=== PATIENT | female | born 1990 | race Hispanic/Latino ===

== ENCOUNTER 2018-05-10 17:02 | Inpatient (IN) | payer OTHER ==
[2018-05-10] MEDS ORDERED: Sodium Chloride 0.9% 1,000 ML IV STA (17:51)
--- NOTE | 2018-05-10 18:22 | ED PDOC ---
HPI: Female Pain Time Seen by Provider: 05/10/18 17:50 Chief Complaint (Nursing): Female Genitourinary Chief Complaint (Provider): Female Genitourinary History Per: Patient History/Exam Limitations: no limitations Onset/Duration Of Symptoms: Days Current Symptoms Are (Timing): Still Present Quality Of Discomfort: "Pain" Associated Symptoms: Fever, Back Pain, Urinary Symptoms. denies: Vomiting, Diarrhea, Chest Pain Additional Complaint(s): 28 y/o female with a PMHx of Imani's disease and 2 kidney infection requiring hospitalization more than 5 years ago presents to the ED complaining of lower back pain and suprapubic pain associated with urinary hesitancy and fever, ongoing since yesterday. Patient reports of going to an Urgent Care yesterday and started on Cipro and Macrobid this morning. Additionally, patient reports of taking Tylenol 1 gram every 3 to 4 hours. Patient is complaint with levothyroxin medications. Denies vaginal discharge, vomiting and diarrhea. PMD: In [place] Past Medical History Reviewed: Historical Data, Nursing Documentation, Vital Signs Vital Signs: Last Vital Signs Temp 100.7 F H 05/10/18 17:26 Pulse 106 H 05/10/18 17:26 Resp 18 05/10/18 17:26 BP 114/77 05/10/18 17:26 Pulse Ox 100 05/10/18 17:26 - Medical History PMH: Hyperthyroidism Other PMH: urinary hesitancy - Surgical History Surgical History: No Surg Hx - Family History Family History: States: Unknown Family Hx - Home Medications Home Medications: Ambulatory Orders Medication Instructions Recorded Ciprofloxacin [Cipro] 500 mg PO BID 05/10/18 - Allergies Allergies/Adverse Reactions: Allergies Allergy/AdvReac Type Severity Reaction Status Date / Time No Known Allergies Allergy Verified 05/10/18 17:26 Review of Systems ROS Statement: Except As Marked, All Systems Reviewed And Found Negative Constitutional: Positive for: Fever, Malaise Cardiovascular: Negative for: Chest Pain Respiratory: Negative for: Shortness of Breath Gastrointestinal: Positive for: Abdominal Pain. Negative for: Vomiting, Diarrhea Genitourinary Female: Positive for: Other (Hesitancy). Negative for: Vaginal Bleeding Musculoskeletal: Positive for: Back Pain Neurological: Negative for: Headache, Other (Syncope) Physical Exam - Reviewed Nursing Documentation Reviewed: Yes Vital Signs Reviewed: Yes - Physical Exam Appears: Positive for: Non-toxic Head Exam: Positive for: ATRAUMATIC, NORMOCEPHALIC Skin: Positive for: Normal Color, Warm, Dry Eye Exam: Positive for: Normal appearance, EOMI, PERRL Neck: Positive for: Normal, Painless ROM Cardiovascular/Chest: Positive for: Regular Rate, Rhythm. Negative for: Murmur Respiratory: Positive for: Normal Breath Sounds. Negative for: Respiratory Distress Gastrointestinal/Abdominal: Positive for: Normal Exam, Soft, Tenderness (Mild lower abdominal tenderness) Back: Positive for: Normal Inspection, L CVA Tenderness (left > right), R CVA Tenderness (left > right) Extremity: Positive for: Normal ROM. Negative for: Pedal Edema, Deformity Neurologic/Psych: Positive for: Alert, Oriented (x3). Negative for: Motor/ Sensory Deficits - Laboratory Results Result Diagrams: 05/11/18 05:00 05/11/18 05:00 - ECG O2 Sat by Pulse Oximetry: 100 (RA) Pulse Ox Interpretation: Normal Medical Decision Making Medical Decision Making: Time: 1753 -- Patient presenting with fever and urinary symptoms associated with back pain. -- Rule out sepsis and pyelonephritis -- Given many hospitalizations many years ago for same symptoms, initiate culture and blood work. Also check Tylenol level given patient unintentionally taking too much Tylenol. -- VBG -- Sodium Chloride IV 1000 mls/hr -- Urine Culture -- Urinalysis Time: 1822 Plan: -- Acetaminophen -- CMP -- ED Urine -- ED Urine Dipstick -- CBC with differentials -- Morphine 2 mg IV -- Blood Culture Time: 1899 -- Labs reviewed revealing nucleosytosis with a lactate of 1.8 -- Given patient meets sepsis criteria and has failed outpatient antibiotics. Patient will be admitted to the Hospitalist for IV antibiotics -- Diagnosis of sepsis and pyelonephritis. -- Patient endorsed to Dr. Nova, pending CT. Scribe Attestation: Documented by Fariha Max acting as a scribe for Dr. Ruiz Dimas III, DO. Provider Scribe Attestation: All medical record entries made by the Scribe were at my direction and personally dictated by me. I have reviewed the chart and agree that the record accurately reflects my personal performance of the history, physical exam, medical decision making, and the department course for this patient. I have also personally directed, reviewed, and agree with the discharge instructions and disposition. Disposition - Clinical Impression Clinical Impression: Sepsis, Pyelonephritis, Renal abscess - Patient ED Disposition Is Patient to be Admitted: Yes Counseled Patient/Family Regarding: Studies Performed, Diagnosis - Disposition Disposition: Transfer of Care Disposition Time: 19:00 Condition: STABLE Patient Signed Over To: Juwan Nova
[2018-05-10 18:27] LABS: SQUAMOUS EPITHIAL 3 /hpf (0-5); URINE BACTERIA RARE (<OCC); URINE BILIRUBIN NEGATIVE (NEGATIVE); URINE BLOOD NEGATIVE (NEGATIVE); URINE CLARITY SLIGHTY-CLOUDY (Clear); URINE COLOR YELLOW (YELLOW); URINE GLUCOSE (UA) NEG (Normal); URINE LEUKOCYTE ESTERASE SMALL Leu/uL (Negative); URINE PROTEIN 30 mg/dL (NEGATIVE); URINE UROBILINOGEN 0.2-1.0 mg/dL (0.2-1.0)
[2018-05-10 18:33] LABS: BASO % 0.1 % (0.0-2.0); EOS % 0.2 % (0.0-4.0); HEMOGLOBIN 13.1 g/dL (12.0-16.0); LYMPH # 0.8 K/uL (1.0-4.3); LYMPH % 4.8 % (20.0-40.0); MEAN CORPUSCULAR HEMOGLOBIN 30.7 pg (27.0-31.0); MEAN CORPUSCULAR HGB CONC 33.7 g/dL (33.0-37.0); MEAN PLATELET VOLUME 7.5 fl (7.2-11.7); MONO # 1.2 K/uL (0.0-0.8); MONO % 7.5 % (0.0-10.0); NEUT % 87.4 % (50.0-75.0); NRBC % 0.2 % (0.0-0.0); PLATELET COUNT 262 K/uL (130-400); RBC 4.28 Mil/uL (3.80-5.20); RED CELL DISTRIBUTION WIDTH 13.2 % (11.5-14.5)
[2018-05-10 18:42] LABS: VENOUS BLOOD GAS PCO2 44 mmHg (40-60); VENOUS BLOOD GAS PO2 29 mm/Hg (30-55)
[2018-05-10 18:45] LABS: ALB/GLOB RATIO 1.3 (1.0-2.1); ALBUMIN 4.5 g/dL (3.5-5.0); ALT/SGPT 24 U/L (9-52); AST/SGOT 25 U/L (14-36); BLOOD UREA NITROGEN 9 mg/dl (7-17); CALCIUM 9.5 mg/dL (8.4-10.2); GFR NON-AFRICAN AMERICAN > 60
[2018-05-10] MEDS ORDERED: Sodium Chloride 0.9% 50 ML IV ONE (19:08)
[2018-05-10] MEDS ORDERED: Iohexol 300 100 ML IJ ONE (19:08)
[2018-05-10] MEDS ORDERED: cefTRIAXone (Rocephin) 1 gm Inj ONE ×2 (19:11→22:33)
[2018-05-10 19:44] LABS: BANDS 1 % (0-2); HYPOCHROMIC SLIGHT; LYMPHOCYTE 5 % (20-50); MONOCYTE 7 % (0-10); NEUTROPHIL 87 % (42-75); PLATELET ESTIMATE NORMAL (NORMAL); TOTAL CELLS COUNTED 100
--- NOTE | 2018-05-10 19:59 | CP.PCM.HP ---
History of Present Illness - History of Present Illness History of Present Illness: 28 yo female with history of Hashimotos disease and previous kidney infection requiring hospitalization came in complaining of low back back and suprapubic pain since 5 days ago associated with fever and urinary hesitancy. She was seen at an Urgent Care this morning and was given Cipro and Macrobid. Her condition did not improved so she decided to seek emergency consultation in the ER. Present on Admission - Present on Admission Any Indicators Present on Admission: No History of DVT/PE: No History of Uncontrolled Diabetes: No Urinary Catheter: No Decubitus Ulcer Present: No Review of Systems - Review of Systems All systems: reviewed and no additional remarkable complaints except (aside from those mentioned above, 12 point system review were negative by me) Past Patient History - Tetanus Immunizations Tetanus Immunization: Unknown - Past Social History Smoking Status: Never Smoked Chewing Tobacco Use: No Cigar Use: No Alcohol: > 2 Drinks/Day (on weekends) Drugs: Denies - ENDOCRINE/METABOLIC Hx Hyperthyroidism: Yes - PSYCHIATRIC Hx Substance Use: No Meds Allergies/Adverse Reactions: Allergies Allergy/AdvReac Type Severity Reaction Status Date / Time No Known Allergies Allergy Verified 05/10/18 17:26 Physical Exam - Constitutional Appears: No Acute Distress - Head Exam Head Exam: ATRAUMATIC - Eye Exam Eye Exam: absent: Scleral icterus - ENT Exam ENT Exam: Mucous Membranes Moist - Neck Exam Neck exam: Negative for: Meningismus - Respiratory Exam Respiratory Exam: absent: Rales, Rhonchi, Wheezes, Respiratory Distress - Cardiovascular Exam Cardiovascular Exam: REGULAR RHYTHM, +S1, +S2 - GI/Abdominal Exam GI & Abdominal Exam: Soft, Tenderness (tenderness on LLQ) - Rectal Exam Rectal Exam: Deferred - Extremities Exam Extremities exam: Negative for: calf tenderness, pedal edema - Back Exam Back exam: absent: tenderness - Neurological Exam Neurological exam: Alert, Oriented x3 - Psychiatric Exam Psychiatric exam: Normal Affect - Skin Skin Exam: Dry, Intact Results - Vital Signs Recent Vital Signs: Last Vital Signs Temp 100.7 F H 05/10/18 17:26 Pulse 106 H 05/10/18 17:26 Resp 18 05/10/18 17:26 BP 114/77 05/10/18 17:26 Pulse Ox 100 05/10/18 19:12 - Labs Result Diagrams: 05/10/18 18:20 05/10/18 18:20 Labs: Laboratory Results - last 24 hr 05/10/18 05/10/18 05/10/18 17:54 18:20 18:20 WBC 16.0 H RBC 4.28 Hgb 13.1 Hct 39.0 MCV 91.0 MCH 30.7 MCHC 33.7 RDW 13.2 Plt Count 262 MPV 7.5 Neut % (Auto) 87.4 H Lymph % (Auto) 4.8 L Cedar % (Auto) 7.5 Eos % (Auto) 0.2 Baso % (Auto) 0.1 Neut # (Auto) 14.0 H Lymph # (Auto) 0.8 L Cedar # (Auto) 1.2 H Eos # (Auto) 0.0 Baso # (Auto) 0.0 Neutrophils % (Manual) 87 H Band Neutrophils % 1 Lymphocytes % (Manual) 5 L Monocytes % (Manual) 7 Platelet Estimate Normal Hypochromasia (manual) Slight pO2 VBG pH VBG pCO2 VBG HCO3 VBG Total CO2 VBG O2 Sat (Calc) VBG Base Excess VBG Potassium Glucose Lactate FiO2 Sodium 137 Potassium 3.9 Chloride 102 Carbon Dioxide 24 Anion Gap 15 BUN 9 Creatinine 0.7 Est GFR ( Amer) > 60 Est GFR (Non-Af Amer) > 60 Random Glucose 109 H Calcium 9.5 Total Bilirubin 0.5 AST 25 ALT 24 Alkaline Phosphatase 78 Total Protein 7.9 Albumin 4.5 Globulin 3.5 Albumin/Globulin Ratio 1.3 Venous Blood Potassium Urine Color Yellow Urine Clarity Slighty-cloudy Urine pH 6.0 Ur Specific Spur 1.024 Urine Protein 30 Urine Glucose (UA) Neg Urine Ketones Trace Urine Blood Negative Urine Nitrate Negative Urine Bilirubin Negative Urine Urobilinogen 0.2-1.0 Ur Leukocyte Esterase Small Urine RBC (Auto) 2 Urine Microscopic WBC 29 H Ur Squamous Epith Cells 3 Urine Bacteria Rare Acetaminophen 05/10/18 05/10/18 18:23 18:35 WBC RBC Hgb Hct MCV MCH MCHC RDW Plt Count MPV Neut % (Auto) Lymph % (Auto) Cedar % (Auto) Eos % (Auto) Baso % (Auto) Neut # (Auto) Lymph # (Auto) Cedar # (Auto) Eos # (Auto) Baso # (Auto) Neutrophils % (Manual) Band Neutrophils % Lymphocytes % (Manual) Monocytes % (Manual) Platelet Estimate Hypochromasia (manual) pO2 29 L VBG pH 7.40 VBG pCO2 44 VBG HCO3 25.3 VBG Total CO2 28.7 H VBG O2 Sat (Calc) 40.7 VBG Base Excess 2.0 VBG Potassium 3.7 Glucose 111 H Lactate 1.8 FiO2 21.0 Sodium 134.0 Potassium Chloride 101.0 Carbon Dioxide Anion Gap BUN Creatinine Est GFR ( Amer) Est GFR (Non-Af Amer) Random Glucose Calcium Total Bilirubin AST ALT Alkaline Phosphatase Total Protein Albumin Globulin Albumin/Globulin Ratio Venous Blood Potassium 3.7 Urine Color Urine Clarity Urine pH Ur Specific Spur Urine Protein Urine Glucose (UA) Urine Ketones Urine Blood Urine Nitrate Urine Bilirubin Urine Urobilinogen Ur Leukocyte Esterase Urine RBC (Auto) Urine Microscopic WBC Ur Squamous Epith Cells Urine Bacteria Acetaminophen 14.0 Assessment & Plan - Assessment and Plan (Free Text) Assessment: 28 yo female with history of Hashimotos disease and previous kidney infection requiring hospitalization came in complaining of low back back and suprapubic pain since 5 days ago associated with fever and urinary hesitancy. She was seen at an Urgent Care this morning and was given Cipro and Macrobid. Her condition did not improved so she decided to seek emergency consultation in the ER. 1. Pyelonephritis blood and urine C&S Rocephin 1gm IV daily CT scan: reading pending 2. Imani's Disease continue Levothyroxine TSH in am
[2018-05-10] MEDS ORDERED: Dextrose 5%/0.9% NS 1,000 ML IV ONE (20:04)
[2018-05-10] MEDS ORDERED: Piperacillin/Tazobact 3.375 GM in Sodium Chloride 0.9% 100 ML IVPB STA (21:02)
--- NOTE | 2018-05-10 21:03 | ED PDOC ---
- Laboratory Results Result Diagrams: 05/10/18 18:20 05/10/18 18:20 - ECG O2 Sat by Pulse Oximetry: 100 (RA) Pulse Ox Interpretation: Normal Medical Decision Making Medical Decision Making: Time: 1899 -- Patient endorsed to me by Dr. Dimas, pending CT. Time: 1957 CT ABD/PELVIS RESULTS FINDINGS: Lung bases: Unremarkable. No mass. No consolidation. ABDOMEN: Liver: Unremarkable. No mass. Gallbladder and bile ducts: Unremarkable. No calcified stones. No ductal dilation. Pancreas: Unremarkable. No mass. No ductal dilation. Spleen: Unremarkable. No splenomegaly. Adrenals: Unremarkable. No mass. Kidneys and ureters: Striated nephrogram of the left kidney lower pole. Striated nephrogram of the right kidney lower pole with a 1.4 x 1.6 cm low density fluid motion or area of phlegmon/developing abscess. No stones. Mild right hydronephrosis. Stomach and bowel: Unremarkable. No obstruction. No mucosal thickening. PELVIS: Appendix: No findings to suggest acute appendicitis. Bladder: Unremarkable. No mass. Reproductive: Unremarkable as visualized. ABDOMEN and PELVIS: Intraperitoneal space: Small free fluid in the pelvis. No free air. Bones/joints: No acute fracture. No dislocation. Soft tissues: Unremarkable. Vasculature: Unremarkable. No abdominal aortic aneurysm. Lymph nodes: Unremarkable. No enlarged lymph nodes. IMPRESSION: Acute bilateral pyelonephritis with a right kidney lower pole 1.6 cm abscess or developing abscess. Thank you for allowing us to participate in the care of your patient. Dictated and Authenticated by: Roberto Zamora MD 05/10/2018 7:58 PM Eastern Time ([place] & [place]) Time: 2099 -- Case discussed with Dr. Singh who states that patient likely will not need drainage if it is not growing. Agrees to consult if inpatient team requires --Case discussed with Dr. Espinal who states to add on Zosyn. --Patient improving after toradol Scribe Attestation: Documented by Fariha Max acting as a scribe for Dr. Juwan Nova MD. Provider Scribe Attestation: All medical record entries made by the Scribe were at my direction and personally dictated by me. I have reviewed the chart and agree that the record accurately reflects my personal performance of the history, physical exam, medical decision making, and the department course for this patient. I have also personally directed, reviewed, and agree with the discharge instructions and disposition. Disposition - Clinical Impression Clinical Impression: Sepsis, Pyelonephritis, Renal abscess - POA Present On Arrival: None - Disposition Disposition: Admitted as In-Patient Disposition Time: 21:00 Condition: STABLE
[2018-05-10] MEDS ORDERED: Piperacillin/Tazobact 3.375 gm Inj IVPB ONE (21:21)
[2018-05-11 05:28] LABS: BLOOD UREA NITROGEN 4 mg/dl (7-17); CALCIUM 8.6 mg/dL (8.4-10.2); GFR NON-AFRICAN AMERICAN > 60
[2018-05-11 05:33] LABS: BASO % 0.2 % (0.0-2.0); EOS # 0.1 K/uL (0.0-0.7); EOS % 0.4 % (0.0-4.0); HEMOGLOBIN 13.1 g/dL (12.0-16.0); LYMPH # 1.5 K/uL (1.0-4.3); MEAN CELL VOLUME 90.7 fl (81.0-99.0); MEAN CORPUSCULAR HEMOGLOBIN 30.7 pg (27.0-31.0); MEAN CORPUSCULAR HGB CONC 33.9 g/dL (33.0-37.0); MEAN PLATELET VOLUME 7.7 fl (7.2-11.7); MONO # 1.3 K/uL (0.0-0.8); MONO % 8.9 % (0.0-10.0); NEUT # 12.1 K/uL (1.8-7.0); NEUT % 80.5 % (50.0-75.0); RBC 4.27 Mil/uL (3.80-5.20); RED CELL DISTRIBUTION WIDTH 13.1 % (11.5-14.5)
--- NOTE | 2018-05-11 08:22 | CARD ---
APPROVED REPORT Date of service: 05/10/2018 EKG Measurement Heart [id number] <Conclusion> Normal sinus rhythm Normal ECG
[2018-05-11] MEDS: Pantoprazole 40 mg EC Tab PO SCH (10:02)
[2018-05-11] MEDS: Enoxaparin 40 mg Syringe SC SCH (10:02)
--- NOTE | 2018-05-11 10:17 | CT ---
Date of service: 05/10/2018 PROCEDURE: CT Abdomen and Pelvis with contrast HISTORY: flank pain, pyelonephritis COMPARISON: The preliminary findings for this examination were reported by [employer] at time. There is concurrence of this report with the preliminary findings. TECHNIQUE: Contrast dose: 90 mL Omnipaque 300 Radiation dose: Total exam DLP = 416.61 mGy-cm. This CT exam was performed using one or more of the following dose reduction techniques: Automated exposure control, adjustment of the mA and/or kV according to patient size, and/or use of iterative reconstruction technique. FINDINGS: LOWER THORAX: Unremarkable. LIVER: Unremarkable. No gross lesion or ductal dilatation. GALLBLADDER AND BILE DUCTS: Unremarkable. PANCREAS: Unremarkable. No gross lesion or ductal dilatation. SPLEEN: Unremarkable. ADRENALS: Unremarkable. No mass. KIDNEYS AND URETERS: Possible small cyst versus wedge-shaped diminished enhancement of pyelonephritis in the lower pole left kidney. There is a probable abscess in the lower pole right kidney seen as a heterogeneous area of diminished attenuation, vaguely ovoid, measuring 2.0 x 2.7 cm. There is no striated nephrogram seen in the right kidney. There is no other renal mass. There is no hydronephrosis. VASCULATURE: Unremarkable. No aortic aneurysm. BOWEL: Unremarkable. No obstruction. No gross mural thickening. APPENDIX: Not positively identified. No secondary findings. PERITONEUM: Trace fluid in the cul-de-sac. LYMPH NODES: Unremarkable. No enlarged lymph nodes. BLADDER: Unremarkable. REPRODUCTIVE: Normal uterus BONES: No acute fracture. OTHER FINDINGS: None. IMPRESSION: Suspected right lower pole renal abscess, 2.0 x 2.7 cm. Correlate with ultrasound examination. Possible pyelonephritis lower pole left kidney versus small cysts. Trace fluid in cul-de-sac. No other significant abnormality. The preliminary findings for this examination were reported by [employer] at 7:58 p.m. on 05/10/2018. There is concurrence of this report with the preliminary findings.
--- NOTE | 2018-05-11 12:41 | CP.PCM.PN ---
Subjective - Date & Time of Evaluation Date of Evaluation: 05/11/18 Time of Evaluation: 12:35 - Subjective Subjective: I D N0TE CHART REVIEWED ,DISCUSSED c HOSPITALIST URINE CULTURE IS SO FAR NEGATIVE, WAS TAKING CIPRO AND MACROBID AWAIT INPUT HAVE D/Roman CEFTRIAXONE,AND STARTED ZOSYN AND MEROPENEM FULL CONSULT TO FOLLOW Objective - Vital Signs/Intake and Output Vital Signs (last 24 hours): Temp Pulse Resp BP Pulse Ox 99.1 F 84 20 105/67 99 05/11/18 08:00 05/11/18 08:00 05/11/18 08:00 05/11/18 08:00 05/11/18 08:00 - Medications Medications: Current Medications Acetaminophen (Tylenol 325mg Tab) 650 mg PO Q6 PRN PRN Reason: Fever >100.4 F Last Admin: 05/10/18 21:36 Dose: 650 mg Enoxaparin Sodium (Lovenox) 40 mg SC DAILY [facility] PRN Reason: Protocol Last Admin: 05/11/18 10:02 Dose: Not Given Piperacillin Sod/Tazobactam (Sod 3.375 gm/ Sodium Chloride) 100 mls @ 100 mls/ hr IVPB Q6 [facility] PRN Reason: Protocol Meropenem 1 gm/ Sodium (Chloride) 100 mls @ 100 mls/hr IVPB Q8 [facility] PRN Reason: Protocol Morphine Sulfate (Morphine) 2 mg IVP Q6 PRN PRN Reason: Pain, moderate (4-7) Last Admin: 05/11/18 11:31 Dose: 2 mg Morphine Sulfate (Morphine) 4 mg IVP Q6 PRN PRN Reason: Pain, severe (8-10) Pantoprazole Sodium (Protonix Ec Tab) 40 mg PO DAILY [facility] Last Admin: 05/11/18 10:02 Dose: 40 mg - Labs Labs: 05/11/18 05:00 05/11/18 05:00
[2018-05-11] MEDS: Meropenem 1 GM in Sodium Chloride 0.9% 100 ML IVPB SCH ×2 (12:49→16:19)
--- NOTE | 2018-05-11 13:12 | US ---
Date of service: 05/11/2018 PROCEDURE: Ultrasound of the Kidneys HISTORY: abscess on lower pole of right kidney COMPARISON: None available. TECHNIQUE: Sonogram of the kidneys. FINDINGS: RIGHT KIDNEY: Measures: 11.1 x 4.4 x 4.1 cm. Normal in size, contour and echogenicity. No stone, solid mass lesion or hydronephrosis visualized. No abscess is identified or even cystic or solid lesion at the low lower pole right kidney wherein abscess was questioned in prior CT 05/10/2018. A CT pattern may reflect phlegmon rather than abscess. LEFT KIDNEY: Measures: 11.4 x 5.2 x 4.5 cm. Normal in size, contour and echogenicity. No stone, solid mass lesion or hydronephrosis visualized. OTHER FINDINGS: None. IMPRESSION: Unremarkable renal ultrasound examination. Prior lower pole right renal finding may reflect phlegmon rather than abscess based on prior CT 05/10/2018.
--- NOTE | 2018-05-11 14:34 | CP.PCM.PN ---
Subjective - Date & Time of Evaluation Date of Evaluation: 05/11/18 Time of Evaluation: 09:00 - Subjective Subjective: Patient seen and examined. [place] better. Objective - Vital Signs/Intake and Output Vital Signs (last 24 hours): Temp Pulse Resp BP Pulse Ox 99.1 F 84 20 105/67 99 05/11/18 08:00 05/11/18 08:00 05/11/18 08:00 05/11/18 08:00 05/11/18 08:00 - Medications Medications: Current Medications Acetaminophen (Tylenol 325mg Tab) 650 mg PO Q6 PRN PRN Reason: Fever >100.4 F Last Admin: 05/10/18 21:36 Dose: 650 mg Enoxaparin Sodium (Lovenox) 40 mg SC DAILY [facility] PRN Reason: Protocol Last Admin: 05/11/18 10:02 Dose: Not Given Piperacillin Sod/Tazobactam (Sod 3.375 gm/ Sodium Chloride) 100 mls @ 100 mls/ hr IVPB Q6 [facility] PRN Reason: Protocol Meropenem 1 gm/ Sodium (Chloride) 100 mls @ 100 mls/hr IVPB Q8 [facility] PRN Reason: Protocol Last Admin: 05/11/18 12:49 Dose: 100 mls/hr Morphine Sulfate (Morphine) 2 mg IVP Q6 PRN PRN Reason: Pain, moderate (4-7) Last Admin: 05/11/18 11:31 Dose: 2 mg Morphine Sulfate (Morphine) 4 mg IVP Q6 PRN PRN Reason: Pain, severe (8-10) Last Admin: 05/11/18 12:46 Dose: 4 mg Pantoprazole Sodium (Protonix Ec Tab) 40 mg PO DAILY [facility] Last Admin: 05/11/18 10:02 Dose: 40 mg - Labs Labs: 05/11/18 05:00 05/11/18 05:00 - Constitutional Appears: No Acute Distress - Head Exam Head Exam: ATRAUMATIC - Eye Exam Eye Exam: absent: Scleral icterus - ENT Exam ENT Exam: Mucous Membranes Moist - Neck Exam Neck Exam: absent: Meningismus - Respiratory Exam Respiratory Exam: absent: Rales, Rhonchi, Wheezes, Respiratory Distress - Cardiovascular Exam Cardiovascular Exam: REGULAR RHYTHM, +S1, +S2 - GI/Abdominal Exam GI & Abdominal Exam: Soft. absent: Tenderness - Rectal Exam Rectal Exam: Deferred - Extremities Exam Extremities Exam: absent: Pedal Edema - Back Exam Back Exam: absent: tenderness - Neurological Exam Neurological Exam: Alert, Oriented x3 - Psychiatric Exam Psychiatric exam: Normal Affect - Skin Skin Exam: Dry, Intact Assessment and Plan - Assessment and Plan (Free Text) Assessment: 28 yo female with history of Hashimotos disease and previous kidney infection requiring hospitalization came in complaining of low back back and suprapubic pain since 5 days ago associated with fever and urinary hesitancy. She was seen at an Urgent Care this morning and was given Cipro and Macrobid. Her condition did not improved so she decided to seek emergency consultation in the ER. 1. Pyelonephritis urine culture: no growth ID consult with Dr Espinal appreciated antibiotic switch to Zosyn and Meropenem CT scan: abscess noted on lower pole of right kidney, pyelonephritis on lower pole of left kidney Renal Sonogram: abscess noted on right kidney described as just a "phlegmon" Urology consult with Dr Singh 2. Imani's Disease continue Levothyroxine TSH: 1.47
--- NOTE | 2018-05-11 16:11 | CP.PCM.CON ---
History of Present Illness - History of Present Illness History of Present Illness: UROLOGY Called today to evaluate findings of bilateral pyelonephritis. Pt came to er yesterday with low back and suprapubic pain. She was treated at an urgicenter the day before but came to hosp for increasing symptoms. She has had renal infection about 5 yrs ago. In the er labs done show WBC 16,000, Bun CREAT WNL Temp 100.[address] was done showing evidence of bilat pyelonephritis with a possible abscess of right kidney. She was started on multiple IV antibiotics under the direction of ID Today theWBC is 15,000,She is afebrile,Urine c&s shows no growth, and a renal ultrasound now reclassified the possible right renal abscess as a phlegmon. At this point her care will be centered around IV antibiotics until her bloodwork returns to normal limits Past Patient History - Tetanus Immunizations Tetanus Immunization: Unknown - Past Medical History & Family History Past Medical History?: Yes - Past Social History Smoking Status: Never Smoked - CARDIAC Hx Cardiac Disorders: No - PULMONARY Hx Respiratory Disorders: No - NEUROLOGICAL Hx Neurological Disorder: No - HEENT Hx HEENT Problems: No - RENAL Hx Chronic Kidney Disease: Yes - ENDOCRINE/METABOLIC Hx Hyperthyroidism: Yes - HEMATOLOGICAL/ONCOLOGICAL Hx Blood Disorders: No Hx AIDS: No Hx Human Immunodeficiency Virus (HIV): No - INTEGUMENTARY Hx Dermatological Problems: No - MUSCULOSKELETAL/RHEUMATOLOGICAL Hx Musculoskeletal Disorders: No Hx Falls: No - GASTROINTESTINAL Hx Gastrointestinal Disorders: No - GENITOURINARY/GYNECOLOGICAL Hx Genitourinary Disorders: No - PSYCHIATRIC Hx Psychophysiologic Disorder: No Hx Substance Use: No - SURGICAL HISTORY Hx Surgeries: No - ANESTHESIA Hx Anesthesia: No Hx Anesthesia Reactions: No Hx Malignant Hyperthermia: No Has any member of the family had a problem w/ anesthesia?: No Meds Allergies/Adverse Reactions: Allergies Allergy/AdvReac Type Severity Reaction Status Date / Time No Known Allergies Allergy Verified 05/10/18 17:26 - Medications Medications: Current Medications Acetaminophen (Tylenol 325mg Tab) 650 mg PO Q6 PRN PRN Reason: Fever >100.4 F Last Admin: 05/10/18 21:36 Dose: 650 mg Enoxaparin Sodium (Lovenox) 40 mg SC DAILY [facility] PRN Reason: Protocol Last Admin: 05/11/18 10:02 Dose: Not Given Piperacillin Sod/Tazobactam (Sod 3.375 gm/ Sodium Chloride) 100 mls @ 100 mls/ hr IVPB Q6 [facility] PRN Reason: Protocol Meropenem 1 gm/ Sodium (Chloride) 100 mls @ 100 mls/hr IVPB Q8 [facility] PRN Reason: Protocol Last Admin: 05/11/18 12:49 Dose: 100 mls/hr Morphine Sulfate (Morphine) 2 mg IVP Q6 PRN PRN Reason: Pain, moderate (4-7) Last Admin: 05/11/18 11:31 Dose: 2 mg Morphine Sulfate (Morphine) 4 mg IVP Q6 PRN PRN Reason: Pain, severe (8-10) Last Admin: 05/11/18 12:46 Dose: 4 mg Pantoprazole Sodium (Protonix Ec Tab) 40 mg PO DAILY [facility] Last Admin: 05/11/18 10:02 Dose: 40 mg Results - Vital Signs Recent Vital Signs: Last Vital Signs Temp 98.3 F 05/11/18 15:56 Pulse 89 05/11/18 15:56 Resp 17 05/11/18 15:56 BP 113/72 05/11/18 15:56 Pulse Ox 100 05/11/18 15:56 - Labs Result Diagrams: 05/11/18 05:00 05/11/18 05:00 Labs: Laboratory Results - last 24 hr 05/10/18 05/10/18 05/10/18 17:54 18:20 18:20 WBC 16.0 H RBC 4.28 Hgb 13.1 Hct 39.0 MCV 91.0 MCH 30.7 MCHC 33.7 RDW 13.2 Plt Count 262 MPV 7.5 Neut % (Auto) 87.4 H Lymph % (Auto) 4.8 L [place] % (Auto) 7.5 Eos % (Auto) 0.2 Baso % (Auto) 0.1 Neut # (Auto) 14.0 H Lymph # (Auto) 0.8 L [place] # (Auto) 1.2 H Eos # (Auto) 0.0 Baso # (Auto) 0.0 Neutrophils % (Manual) 87 H Band Neutrophils % 1 Lymphocytes % (Manual) 5 L Monocytes % (Manual) 7 Platelet Estimate Normal Hypochromasia (manual) Slight pO2 VBG pH VBG pCO2 VBG HCO3 VBG Total CO2 VBG O2 Sat (Calc) VBG Base Excess VBG Potassium Glucose Lactate FiO2 Sodium 137 Potassium 3.9 Chloride 102 Carbon Dioxide 24 Anion Gap 15 BUN 9 Creatinine 0.7 Est GFR ( Amer) > 60 Est GFR (Non-Af Amer) > 60 Random Glucose 109 H Calcium 9.5 Total Bilirubin 0.5 AST 25 ALT 24 Alkaline Phosphatase 78 Total Protein 7.9 Albumin 4.5 Globulin 3.5 Albumin/Globulin Ratio 1.3 TSH 3rd Generation Venous Blood Potassium Urine Color Yellow Urine Clarity Slighty-cloudy Urine pH 6.0 Ur Specific [place] 1.024 Urine Protein 30 Urine Glucose (UA) Neg Urine Ketones Trace Urine Blood Negative Urine Nitrate Negative Urine Bilirubin Negative Urine Urobilinogen 0.2-1.0 Ur Leukocyte Esterase Small Urine RBC (Auto) 2 Urine Microscopic WBC 29 H Ur Squamous Epith Cells 3 Urine Bacteria Rare Acetaminophen 05/10/18 05/10/18 05/11/18 18:23 18:35 05:00 WBC 15.0 H RBC 4.27 Hgb 13.1 Hct 38.7 MCV 90.7 MCH 30.7 MCHC 33.9 RDW 13.1 Plt Count 266 MPV 7.7 Neut % (Auto) 80.5 H Lymph % (Auto) 10.0 L [place] % (Auto) 8.9 Eos % (Auto) 0.4 Baso % (Auto) 0.2 Neut # (Auto) 12.1 H Lymph # (Auto) 1.5 [place] # (Auto) 1.3 H Eos # (Auto) 0.1 Baso # (Auto) 0.0 Neutrophils % (Manual) Band Neutrophils % Lymphocytes % (Manual) Monocytes % (Manual) Platelet Estimate Hypochromasia (manual) pO2 29 L VBG pH 7.40 VBG pCO2 44 VBG HCO3 25.3 VBG Total CO2 28.7 H VBG O2 Sat (Calc) 40.7 VBG Base Excess 2.0 VBG Potassium 3.7 Glucose 111 H Lactate 1.8 FiO2 21.0 Sodium 134.0 Potassium Chloride 101.0 Carbon Dioxide Anion Gap BUN Creatinine Est GFR ( Amer) Est GFR (Non-Af Amer) Random Glucose Calcium Total Bilirubin AST ALT Alkaline Phosphatase Total Protein Albumin Globulin Albumin/Globulin Ratio TSH 3rd Generation Venous Blood Potassium 3.7 Urine Color Urine Clarity Urine pH Ur Specific [place] Urine Protein Urine Glucose (UA) Urine Ketones Urine Blood Urine Nitrate Urine Bilirubin Urine Urobilinogen Ur Leukocyte Esterase Urine RBC (Auto) Urine Microscopic WBC Ur Squamous Epith Cells Urine Bacteria Acetaminophen 14.0 05/11/18 05:00 WBC RBC Hgb Hct MCV MCH MCHC RDW Plt Count MPV Neut % (Auto) Lymph % (Auto) [place] % (Auto) Eos % (Auto) Baso % (Auto) Neut # (Auto) Lymph # (Auto) [place] # (Auto) Eos # (Auto) Baso # (Auto) Neutrophils % (Manual) Band Neutrophils % Lymphocytes % (Manual) Monocytes % (Manual) Platelet Estimate Hypochromasia (manual) pO2 VBG pH VBG pCO2 VBG HCO3 VBG Total CO2 VBG O2 Sat (Calc) VBG Base Excess VBG Potassium Glucose Lactate FiO2 Sodium 140 Potassium 3.5 L Chloride 106 Carbon Dioxide 24 Anion Gap 14 BUN 4 L Creatinine 0.7 Est GFR ( Amer) > 60 Est GFR (Non-Af Amer) > 60 Random Glucose 118 H Calcium 8.6 Total Bilirubin AST ALT Alkaline Phosphatase Total Protein Albumin Globulin Albumin/Globulin Ratio TSH 3rd Generation 1.47 Venous Blood Potassium Urine Color Urine Clarity Urine pH Ur Specific [place] Urine Protein Urine Glucose (UA) Urine Ketones Urine Blood Urine Nitrate Urine Bilirubin Urine Urobilinogen Ur Leukocyte Esterase Urine RBC (Auto) Urine Microscopic WBC Ur Squamous Epith Cells Urine Bacteria Acetaminophen
[2018-05-11] MEDS: Piperacillin/Tazobact 3.375 GM in Sodium Chloride 0.9% 100 ML IVPB SCH ×2 (16:19→21:16)
[2018-05-12] MEDS: Meropenem 1 GM in Sodium Chloride 0.9% 100 ML IVPB SCH ×3 (00:08→16:56)
[2018-05-12] MEDS: Morphine 4 MG/ML VIAL IVP PRN (00:26)
[2018-05-12] MEDS: Piperacillin/Tazobact 3.375 GM in Sodium Chloride 0.9% 100 ML IVPB SCH ×2 (03:40→09:15)
[2018-05-12] MEDS: Levothyroxine 100 MCG TAB PO SCH (05:37)
[2018-05-12 07:47] LABS: BASO % 0.2 % (0.0-2.0); EOS # 0.1 K/uL (0.0-0.7); LYMPH # 2.1 K/uL (1.0-4.3); LYMPH % 17.5 % (20.0-40.0); MEAN CELL VOLUME 89.1 fl (81.0-99.0); MEAN CORPUSCULAR HEMOGLOBIN 30.3 pg (27.0-31.0); MEAN PLATELET VOLUME 7.8 fl (7.2-11.7); MONO # 1.5 K/uL (0.0-0.8); MONO % 12.5 % (0.0-10.0); NEUT # 8.1 K/uL (1.8-7.0); NEUT % 68.8 % (50.0-75.0); NRBC % 0.1 % (0.0-0.0); RBC 3.94 Mil/uL (3.80-5.20); WHITE BLOOD COUNT 11.7 K/uL (4.8-10.8)
[2018-05-12 08:21] LABS: ALB/GLOB RATIO 1.1 (1.0-2.1); ALBUMIN 3.5 g/dL (3.5-5.0); ALT/SGPT 141 U/L (9-52); AST/SGOT 166 U/L (14-36); BLOOD UREA NITROGEN 5 mg/dl (7-17); CALCIUM 8.9 mg/dL (8.4-10.2); GFR NON-AFRICAN AMERICAN > 60
[2018-05-12] MEDS: Enoxaparin 40 mg Syringe SC SCH (09:16)
[2018-05-12] MEDS: Pantoprazole 40 mg EC Tab PO SCH (09:17)
[2018-05-12 15:43] LABS: ALBUMIN 3.9 g/dL (3.5-5.0); BILIRUBIN,DIRECT 0.2 mg/ml (0.0-0.4)
--- NOTE | 2018-05-12 15:55 | CP.PCM.PN ---
Subjective - Date & Time of Evaluation Date of Evaluation: 05/12/18 Time of Evaluation: 15:51 - Subjective Subjective: i d note afebrile wbc:10.5 less pain lfts are elevated,repeat patient took significant amount of tylenol have d/nury zosyn continue meropenem Objective - Vital Signs/Intake and Output Vital Signs (last 24 hours): Temp Pulse Resp BP Pulse Ox 98.6 F 83 20 105/67 98 05/12/18 12:34 05/12/18 12:34 05/12/18 12:34 05/12/18 12:34 05/12/18 12:34 - Medications Medications: Current Medications Acetaminophen (Tylenol 325mg Tab) 650 mg PO Q6 PRN PRN Reason: Fever >100.4 F Last Admin: 05/12/18 14:21 Dose: 650 mg Enoxaparin Sodium (Lovenox) 40 mg SC DAILY [facility] PRN Reason: Protocol Last Admin: 05/12/18 09:16 Dose: Not Given Meropenem 1 gm/ Sodium (Chloride) 100 mls @ 100 mls/hr IVPB Q8 [facility] PRN Reason: Protocol Last Admin: 05/12/18 09:15 Dose: 100 mls/hr Levothyroxine Sodium (Synthroid) 100 mcg PO DAILY@0630 [facility] Last Admin: 05/12/18 05:37 Dose: 100 mcg Morphine Sulfate (Morphine) 2 mg IVP Q6 PRN PRN Reason: Pain, moderate (4-7) Last Admin: 05/12/18 10:28 Dose: 2 mg Morphine Sulfate (Morphine) 4 mg IVP Q6 PRN PRN Reason: Pain, severe (8-10) Last Admin: 05/12/18 00:26 Dose: 4 mg Pantoprazole Sodium (Protonix Ec Tab) 40 mg PO DAILY [facility] Last Admin: 05/12/18 09:17 Dose: 40 mg - Labs Labs: 05/12/18 06:00 05/12/18 06:00
--- NOTE | 2018-05-12 17:36 | CP.PCM.PN ---
Subjective - Date & Time of Evaluation Date of Evaluation: 05/12/18 Time of Evaluation: 16:20 - Subjective Subjective: Patient seen and examined. Pain on suprapubic area less intense and responded well to Tylenol Objective - Vital Signs/Intake and Output Vital Signs (last 24 hours): Temp Pulse Resp BP Pulse Ox 98.4 F 76 20 108/71 99 05/12/18 15:59 05/12/18 15:59 05/12/18 15:59 05/12/18 15:59 05/12/18 15:59 - Medications Medications: Current Medications Acetaminophen (Tylenol 325mg Tab) 650 mg PO Q6 PRN PRN Reason: Fever >100.4 F Last Admin: 05/12/18 14:21 Dose: 650 mg Enoxaparin Sodium (Lovenox) 40 mg SC DAILY [facility] PRN Reason: Protocol Last Admin: 05/12/18 09:16 Dose: Not Given Meropenem 1 gm/ Sodium (Chloride) 100 mls @ 100 mls/hr IVPB Q8 [facility] PRN Reason: Protocol Last Admin: 05/12/18 16:56 Dose: 100 mls/hr Levothyroxine Sodium (Synthroid) 100 mcg PO DAILY@0630 [facility] Last Admin: 05/12/18 05:37 Dose: 100 mcg Morphine Sulfate (Morphine) 2 mg IVP Q6 PRN PRN Reason: Pain, moderate (4-7) Last Admin: 05/12/18 10:28 Dose: 2 mg Morphine Sulfate (Morphine) 4 mg IVP Q6 PRN PRN Reason: Pain, severe (8-10) Last Admin: 05/12/18 00:26 Dose: 4 mg Pantoprazole Sodium (Protonix Ec Tab) 40 mg PO DAILY [facility] Last Admin: 05/12/18 09:17 Dose: 40 mg - Labs Labs: 05/12/18 06:00 05/12/18 06:00 - Constitutional Appears: No Acute Distress - Head Exam Head Exam: ATRAUMATIC - Eye Exam Eye Exam: absent: Scleral icterus - ENT Exam ENT Exam: Mucous Membranes Moist - Neck Exam Neck Exam: absent: Meningismus - Respiratory Exam Respiratory Exam: absent: Rales, Rhonchi, Wheezes, Respiratory Distress - Cardiovascular Exam Cardiovascular Exam: REGULAR RHYTHM, +S1, +S2 - GI/Abdominal Exam GI & Abdominal Exam: Soft. absent: Tenderness - Rectal Exam Rectal Exam: Deferred - Extremities Exam Extremities Exam: absent: Calf Tenderness, Pedal Edema - Back Exam Back Exam: absent: tenderness - Neurological Exam Neurological Exam: Alert, Oriented x3 - Psychiatric Exam Psychiatric exam: Normal Affect - Skin Skin Exam: Dry, Intact Assessment and Plan - Assessment and Plan (Free Text) Assessment: 28 yo female with history of Hashimotos disease and previous kidney infections requiring hospitalization came in complaining of low back back and suprapubic pain associated with fever and urinary hesitancy. She was seen at an Urgent Care this morning and was given Cipro and Macrobid. Her condition did not improved so she decided to seek emergency consultation in the ER. 1. Pyelonephritis blood and urine C&S: no growth CT scan: positive for bilateral pyelonephritis, r/o abscess on lower pole of right kidney antibiotic switch to Meropenem by ID consult, Dr Espinal appreciate urology consult with Dr Singh LFTs elevated secondary to sepsis, trending down 2. Imani's Disease continue Levothyroxine 100mcg PO daily TSH: 1.47
[2018-05-13] MEDS: Meropenem 1 GM in Sodium Chloride 0.9% 100 ML IVPB SCH ×3 (00:25→16:29)
[2018-05-13] MEDS: Morphine 4 MG/ML VIAL IVP PRN (05:08)
[2018-05-13] MEDS: Levothyroxine 100 MCG TAB PO SCH (05:35)
--- NOTE | 2018-05-13 07:09 | CP.PCM.DIS ---
Provider - Provider Date of Admission: 05/10/18 19:27 Attending physician: Guru Romo MD Hospital Course - Lab Results Lab Results: Micro Results 05/10/18 18:45 Blood Blood Culture - Preliminary NO GROWTH AFTER 48 HOURS 05/10/18 18:20 Blood Blood Culture - Preliminary NO GROWTH AFTER 48 HOURS 05/10/18 17:54 Urine Urine Culture - Final No Growth (<1,000 CFU/ML) Most Recent Lab Values WBC 11.7 K/uL (4.8-10.8) H 05/12/18 06:00 RBC 3.94 Mil/uL (3.80-5.20) 05/12/18 06:00 Hgb 12.0 g/dL (12.0-16.0) 05/12/18 06:00 Hct 35.2 % (34.0-47.0) 05/12/18 06:00 MCV 89.1 fl (81.0-99.0) 05/12/18 06:00 MCH 30.3 pg (27.0-31.0) 05/12/18 06:00 MCHC 34.0 g/dL (33.0-37.0) 05/12/18 06:00 RDW 13.0 % (11.5-14.5) 05/12/18 06:00 Plt Count 293 K/uL (130-400) 05/12/18 06:00 MPV 7.8 fl (7.2-11.7) 05/12/18 06:00 Neut % (Auto) 68.8 % (50.0-75.0) 05/12/18 06:00 Lymph % (Auto) 17.5 % (20.0-40.0) L 05/12/18 06:00 [place] % (Auto) 12.5 % (0.0-10.0) H 05/12/18 06:00 Eos % (Auto) 1.0 % (0.0-4.0) 05/12/18 06:00 Baso % (Auto) 0.2 % (0.0-2.0) 05/12/18 06:00 Neut # (Auto) 8.1 K/uL (1.8-7.0) H 05/12/18 06:00 Lymph # (Auto) 2.1 K/uL (1.0-4.3) 05/12/18 06:00 [place] # (Auto) 1.5 K/uL (0.0-0.8) H 05/12/18 06:00 Eos # (Auto) 0.1 K/uL (0.0-0.7) 05/12/18 06:00 Baso # (Auto) 0.0 K/uL (0.0-0.2) 05/12/18 06:00 Neutrophils % (Manual) 87 % (42-75) H 05/10/18 18:20 Band Neutrophils % 1 % (0-2) 05/10/18 18:20 Lymphocytes % (Manual) 5 % (20-50) L 05/10/18 18:20 Monocytes % (Manual) 7 % (0-10) 05/10/18 18:20 Platelet Estimate Normal (NORMAL) 05/10/18 18:20 Hypochromasia (manual) Slight 05/10/18 18:20 pO2 29 mm/Hg (30-55) L 05/10/18 18:35 VBG pH 7.40 (7.32-7.43) 05/10/18 18:35 VBG pCO2 44 mmHg (40-60) 05/10/18 18:35 VBG HCO3 25.3 mmol/L 05/10/18 18:35 VBG Total CO2 28.7 mmol/L (22-28) H 05/10/18 18:35 VBG O2 Sat (Calc) 40.7 % (40-65) 05/10/18 18:35 VBG Base Excess 2.0 mmol/L (0.0-2.0) 05/10/18 18:35 VBG Potassium 3.7 mmol/L (3.6-5.2) 05/10/18 18:35 Sodium 134.0 mmol/L (132-148) 05/10/18 18:35 Chloride 101.0 mmol/L (98-107) 05/10/18 18:35 Glucose 111 mg/dL (65-105) H 05/10/18 18:35 Lactate 1.8 mmol/L (0.7-2.1) 05/10/18 18:35 FiO2 21.0 % 05/10/18 18:35 Sodium 136 mmol/l (132-148) 05/12/18 06:00 Potassium 3.9 MMOL/L (3.6-5.0) 05/12/18 06:00 Chloride 104 mmol/L (98-107) 05/12/18 06:00 Carbon Dioxide 27 mmol/L (22-30) 05/12/18 06:00 Anion Gap 9 (10-20) L 05/12/18 06:00 BUN 5 mg/dl (7-17) L 05/12/18 06:00 Creatinine 0.7 mg/dl (0.7-1.2) 05/12/18 06:00 Est GFR ( Amer) > 60 05/12/18 06:00 Est GFR (Non-Af Amer) > 60 05/12/18 06:00 Random Glucose 93 mg/dL (65-105) 05/12/18 06:00 Calcium 8.9 mg/dL (8.4-10.2) 05/12/18 06:00 Total Bilirubin 0.2 mg/dl (0.2-1.3) 05/12/18 14:55 Direct Bilirubin 0.2 mg/ml (0.0-0.4) 05/12/18 14:55 AST 120 U/L (14-36) H D 05/12/18 14:55 ALT 145 U/L (9-52) H 05/12/18 14:55 Alkaline Phosphatase 104 U/L (38-126) 05/12/18 14:55 Total Protein 7.8 G/DL (6.3-8.2) 05/12/18 14:55 Albumin 3.9 g/dL (3.5-5.0) 05/12/18 14:55 Globulin 3.9 gm/dL (2.2-3.9) 05/12/18 14:55 Albumin/Globulin Ratio 1.0 (1.0-2.1) 05/12/18 14:55 TSH 3rd Generation 1.47 mIU/ML (0.46-4.68) 05/11/18 05:00 Venous Blood Potassium 3.7 mmol/L (3.6-5.2) 05/10/18 18:35 Urine Color Yellow (YELLOW) 05/10/18 17:54 Urine Clarity Slighty-cloudy (Clear) 05/10/18 17:54 Urine pH 6.0 (5.0-8.0) 05/10/18 17:54 Ur Specific [place] 1.024 (1.003-1.030) 05/10/18 17:54 Urine Protein 30 mg/dL (NEGATIVE) 05/10/18 17:54 Urine Glucose (UA) Neg mg/dL (Normal) 05/10/18 17:54 Urine Ketones Trace mg/dL (NEGATIVE) 05/10/18 17:54 Urine Blood Negative (NEGATIVE) 05/10/18 17:54 Urine Nitrate Negative (NEGATIVE) 05/10/18 17:54 Urine Bilirubin Negative (NEGATIVE) 05/10/18 17:54 Urine Urobilinogen 0.2-1.0 mg/dL (0.2-1.0) 05/10/18 17:54 Ur Leukocyte Esterase Small [place]/uL (Negative) 05/10/18 17:54 Urine RBC (Auto) 2 /hpf (0-3) 05/10/18 17:54 Urine Microscopic WBC 29 /hpf (0-5) H 05/10/18 17:54 Ur Squamous Epith Cells 3 /hpf (0-5) 05/10/18 17:54 Urine Bacteria Rare (<OCC) 05/10/18 17:54 Acetaminophen 14.0 ug/ml (10.0-30.0) 05/10/18 18:23 - Hospital Course Hospital Course: 8 yo female with history of Hashimotos disease and previous kidney infections requiring hospitalization came in complaining of low back back and suprapubic pain associated with fever and urinary hesitancy. She was seen at an Urgent Care this morning and was given Cipro and Macrobid. Her condition did not improved so she decided to seek emergency consultation in the ER. 1. Pyelonephritis blood and urine C&S: no growth CT scan: positive for bilateral pyelonephritis, r/o abscess on lower pole of right kidney antibiotic switch to Meropenem by ID consult, Dr Espinal appreciate urology consult with Dr Singh LFTs elevated secondary to sepsis, trending down 2. Imani's Disease continue Levothyroxine 100mcg PO daily TSH: 1.47 Discharge Exam - Head Exam Head Exam: ATRAUMATIC Discharge Plan - Follow Up Plan Condition: STABLE Disposition: HOME/ ROUTINE Instructions: Kidney Infection (DC) Referrals: Shar Singh MD [Medical Doctor] -
[2018-05-13 07:37] LABS: HEMOGLOBIN 12.5 g/dL (12.0-16.0); MEAN CELL VOLUME 89.1 fl (81.0-99.0); MEAN CORPUSCULAR HEMOGLOBIN 30.5 pg (27.0-31.0); MEAN CORPUSCULAR HGB CONC 34.2 g/dL (33.0-37.0); RBC 4.09 Mil/uL (3.80-5.20); WHITE BLOOD COUNT 9.6 K/uL (4.8-10.8)
[2018-05-13] MEDS: Pantoprazole 40 mg EC Tab PO SCH (09:02)
[2018-05-13] MEDS: Enoxaparin 40 mg Syringe SC SCH (09:11)
--- NOTE | 2018-05-13 14:29 | CP.PCM.PN ---
Subjective - Date & Time of Evaluation Date of Evaluation: 05/13/18 Time of Evaluation: 11:00 - Subjective Subjective: Patient seen and examined bedside. Hemodynamically stable, afebrile Denies fever , chills, abdominal , back pain or dysuria No acute issues overnight Afebrile > 48 hours ands WBC 9.6 Urine and blood cultures with no growth Objective - Vital Signs/Intake and Output Vital Signs (last 24 hours): Temp Pulse Resp BP Pulse Ox 98.2 F 81 20 117/74 100 05/13/18 12:24 05/13/18 12:24 05/13/18 12:24 05/13/18 12:24 05/13/18 12:24 - Medications Medications: Current Medications Acetaminophen (Tylenol 325mg Tab) 650 mg PO Q6 PRN PRN Reason: Fever >100.4 F Last Admin: 05/12/18 14:21 Dose: 650 mg Enoxaparin Sodium (Lovenox) 40 mg SC DAILY [facility] PRN Reason: Protocol Last Admin: 05/13/18 09:11 Dose: Not Given Meropenem 1 gm/ Sodium (Chloride) 100 mls @ 100 mls/hr IVPB Q8 [facility] PRN Reason: Protocol Last Admin: 05/13/18 09:03 Dose: 100 mls/hr Levothyroxine Sodium (Synthroid) 100 mcg PO DAILY@0630 [facility] Last Admin: 05/13/18 05:35 Dose: 100 mcg Morphine Sulfate (Morphine) 2 mg IVP Q6 PRN PRN Reason: Pain, moderate (4-7) Last Admin: 05/12/18 20:25 Dose: 2 mg Morphine Sulfate (Morphine) 4 mg IVP Q6 PRN PRN Reason: Pain, severe (8-10) Last Admin: 05/13/18 05:08 Dose: 4 mg Pantoprazole Sodium (Protonix Ec Tab) 40 mg PO DAILY [facility] Last Admin: 05/13/18 09:02 Dose: 40 mg - Labs Labs: 05/13/18 07:25 05/12/18 06:00 - Constitutional Appears: Non-toxic, No Acute Distress - Head Exam Head Exam: ATRAUMATIC, NORMAL INSPECTION, NORMOCEPHALIC - Eye Exam Eye Exam: EOMI, Normal appearance, PERRL Pupil Exam: NORMAL ACCOMODATION - ENT Exam ENT Exam: Mucous Membranes Moist, Normal Exam - Neck Exam Neck Exam: Full ROM, Normal Inspection - Respiratory Exam Respiratory Exam: Clear to Ausculation Bilateral, NORMAL BREATHING PATTERN. absent: Rales, Rhonchi, Wheezes - Cardiovascular Exam Cardiovascular Exam: REGULAR RHYTHM, RRR, +S1, +S2. absent: JVD - GI/Abdominal Exam GI & Abdominal Exam: Soft, Normal Bowel Sounds. absent: Distended, Guarding, Tenderness, Rebound - Rectal Exam Rectal Exam: Deferred - Extremities Exam Extremities Exam: Full ROM, Normal Capillary Refill, Normal Inspection. absent : Calf Tenderness, Pedal Edema, Tenderness - Back Exam Back Exam: NORMAL INSPECTION. absent: CVA tenderness (L), CVA tenderness (R), paraspinal tenderness, vertebral tenderness - Neurological Exam Neurological Exam: Alert, Awake, CN II-XII Intact, Oriented x3 - Psychiatric Exam Psychiatric exam: Normal Affect, Normal Mood - Skin Skin Exam: Dry, Intact, Normal Color, Warm Assessment and Plan - Assessment and Plan (Free Text) Assessment: 28 yo female with history of Hashimotos disease and previous kidney infections requiring hospitalization came in complaining of low back back and suprapubic pain associated with fever and urinary hesitancy. She was seen at an Urgent Care this morning and was given Cipro and Macrobid. Her condition did not improved so she decided to seek emergency consultation in the ER. In Er she was found to be febrile with elevated WBC count and UA showed 29 WBC , small LE , negative for nitrates with few bacteria Ct abdomen showed :Suspected right lower pole renal abscess, 2.0 x 2.7 cm. Possible pyelonephritis lower pole left kidney versus small cysts. Trace fluid in cul-de-sac. ID and urology consulted and patient started on IV antibiotics. At present doing well, cultures with no growth 1. Pyelonephritis blood and urine C&S: no growth Afebrile for 48 hours and WBC 9.[address] scan: Suspected right lower pole renal abscess, 2.0 x 2.7 cm. Possible pyelonephritis lower pole left kidney versus small cysts. Trace fluid in cul-de- sac. ID and urologyconsults appreciated Renal US showed phlegmon Discussed with ID and recommended continuation of IV antibiotics for now Continue meropenem 2. Transaminitis LFT0s trending down , today 120/145 Possible secondary to sepsis or medication side effect 3. Imani's Disease continue Levothyroxine 100mcg PO daily TSH: 1.47 4.DVT prophylaxis lovenox
[2018-05-14] MEDS: Meropenem 1 GM in Sodium Chloride 0.9% 100 ML IVPB SCH ×2 (00:13→08:38)
[2018-05-14] MEDS ORDERED: Morphine 4 MG/ML VIAL SC ONE (01:23)
[2018-05-14 05:24] VITALS: O2SAT 98
[2018-05-14 05:28] LABS: HEMOGLOBIN 13.3 g/dL (12.0-16.0); MEAN CELL VOLUME 89.5 fl (81.0-99.0); MEAN CORPUSCULAR HEMOGLOBIN 30.6 pg (27.0-31.0); MEAN CORPUSCULAR HGB CONC 34.2 g/dL (33.0-37.0); RBC 4.33 Mil/uL (3.80-5.20); RED CELL DISTRIBUTION WIDTH 13.1 % (11.5-14.5); WHITE BLOOD COUNT 8.1 K/uL (4.8-10.8)
[2018-05-14 05:58] LABS: ALB/GLOB RATIO 1.1 (1.0-2.1); ALBUMIN 4.1 g/dL (3.5-5.0); ALT/SGPT 84 U/L (9-52); AST/SGOT 43 U/L (14-36); BLOOD UREA NITROGEN 7 mg/dl (7-17); CALCIUM 9.8 mg/dL (8.4-10.2); GFR NON-AFRICAN AMERICAN > 60
[2018-05-14] MEDS: Levothyroxine 100 MCG TAB PO SCH (06:21)
[2018-05-14] MEDS: Enoxaparin 40 mg Syringe SC SCH (08:38)
[2018-05-14] MEDS: Pantoprazole 40 mg EC Tab PO SCH (08:39)
[2018-05-14 12:27] VITALS: BP 113/47; PULSE 81; RESP 18; TEMP 98.2
--- NOTE | 2018-05-14 13:16 | CP.PCM.PN ---
Subjective - Date & Time of Evaluation Date of Evaluation: 05/14/18 Time of Evaluation: 13:19 - Subjective Subjective: I D NOTE PATIENTs LFTs HAVE IMPROVED SIGNIFICANTLY WILPATIENT CAN BE DISCHARGED ON CEFTIN 500MG PO QD X 7 DAYS F/U c PMD DISCUSSED c HOSPITALIST Objective - Vital Signs/Intake and Output Vital Signs (last 24 hours): Temp Pulse Resp BP Pulse Ox 98.2 F 81 18 113/47 L 98 05/14/18 12:00 05/14/18 12:00 05/14/18 12:00 05/14/18 12:00 05/14/18 12:00 - Medications Medications: Current Medications Acetaminophen (Tylenol 325mg Tab) 650 mg PO Q6 PRN PRN Reason: Fever >100.4 F Last Admin: 05/12/18 14:21 Dose: 650 mg Enoxaparin Sodium (Lovenox) 40 mg SC DAILY [facility] PRN Reason: Protocol Last Admin: 05/14/18 08:38 Dose: Not Given Meropenem 1 gm/ Sodium (Chloride) 100 mls @ 100 mls/hr IVPB Q8 [facility] PRN Reason: Protocol Last Admin: 05/14/18 08:38 Dose: 100 mls/hr Levothyroxine Sodium (Synthroid) 100 mcg PO DAILY@0630 [facility] Last Admin: 05/14/18 06:21 Dose: 100 mcg Morphine Sulfate (Morphine) 2 mg IVP Q6 PRN PRN Reason: Pain, moderate (4-7) Last Admin: 05/12/18 20:25 Dose: 2 mg Morphine Sulfate (Morphine) 4 mg IVP Q6 PRN PRN Reason: Pain, severe (8-10) Last Admin: 05/13/18 05:08 Dose: 4 mg Pantoprazole Sodium (Protonix Ec Tab) 40 mg PO DAILY [facility] Last Admin: 05/14/18 08:39 Dose: 40 mg - Labs Labs: 05/14/18 04:20 05/14/18 04:20
--- NOTE | 2018-05-14 14:54 | CP.PCM.DIS ---
Provider - Provider Date of Admission: 05/10/18 19:27 Attending physician: Guru Romo MD Primary care physician: none Consults: ID consult urology consult Time Spent in preparation of Discharge (in minutes): 15 Hospital Course - Lab Results Lab Results: Micro Results 05/10/18 18:45 Blood Blood Culture - Preliminary NO GROWTH AFTER 3 DAYS 05/10/18 18:20 Blood Blood Culture - Preliminary NO GROWTH AFTER 3 DAYS 05/10/18 17:54 Urine Urine Culture - Final No Growth (<1,000 CFU/ML) Most Recent Lab Values WBC 8.1 K/uL (4.8-10.8) 05/14/18 04:20 RBC 4.33 Mil/uL (3.80-5.20) 05/14/18 04:20 Hgb 13.3 g/dL (12.0-16.0) 05/14/18 04:20 Hct 38.8 % (34.0-47.0) 05/14/18 04:20 MCV 89.5 fl (81.0-99.0) 05/14/18 04:20 MCH 30.6 pg (27.0-31.0) 05/14/18 04:20 MCHC 34.2 g/dL (33.0-37.0) 05/14/18 04:20 RDW 13.1 % (11.5-14.5) 05/14/18 04:20 Plt Count 380 K/uL (130-400) 05/14/18 04:20 MPV 7.8 fl (7.2-11.7) 05/12/18 06:00 Neut % (Auto) 68.8 % (50.0-75.0) 05/12/18 06:00 Lymph % (Auto) 17.5 % (20.0-40.0) L 05/12/18 06:00 [place] % (Auto) 12.5 % (0.0-10.0) H 05/12/18 06:00 Eos % (Auto) 1.0 % (0.0-4.0) 05/12/18 06:00 Baso % (Auto) 0.2 % (0.0-2.0) 05/12/18 06:00 Neut # (Auto) 8.1 K/uL (1.8-7.0) H 05/12/18 06:00 Lymph # (Auto) 2.1 K/uL (1.0-4.3) 05/12/18 06:00 [place] # (Auto) 1.5 K/uL (0.0-0.8) H 05/12/18 06:00 Eos # (Auto) 0.1 K/uL (0.0-0.7) 05/12/18 06:00 Baso # (Auto) 0.0 K/uL (0.0-0.2) 05/12/18 06:00 Neutrophils % (Manual) 87 % (42-75) H 05/10/18 18:20 Band Neutrophils % 1 % (0-2) 05/10/18 18:20 Lymphocytes % (Manual) 5 % (20-50) L 05/10/18 18:20 Monocytes % (Manual) 7 % (0-10) 05/10/18 18:20 Platelet Estimate Normal (NORMAL) 05/10/18 18:20 Hypochromasia (manual) Slight 05/10/18 18:20 pO2 29 mm/Hg (30-55) L 05/10/18 18:35 VBG pH 7.40 (7.32-7.43) 05/10/18 18:35 VBG pCO2 44 mmHg (40-60) 05/10/18 18:35 VBG HCO3 25.3 mmol/L 05/10/18 18:35 VBG Total CO2 28.7 mmol/L (22-28) H 05/10/18 18:35 VBG O2 Sat (Calc) 40.7 % (40-65) 05/10/18 18:35 VBG Base Excess 2.0 mmol/L (0.0-2.0) 05/10/18 18:35 VBG Potassium 3.7 mmol/L (3.6-5.2) 05/10/18 18:35 Sodium 134.0 mmol/L (132-148) 05/10/18 18:35 Chloride 101.0 mmol/L (98-107) 05/10/18 18:35 Glucose 111 mg/dL (65-105) H 05/10/18 18:35 Lactate 1.8 mmol/L (0.7-2.1) 05/10/18 18:35 FiO2 21.0 % 05/10/18 18:35 Sodium 142 mmol/l (132-148) 05/14/18 04:20 Potassium 4.3 MMOL/L (3.6-5.0) 05/14/18 04:20 Chloride 101 mmol/L (98-107) 05/14/18 04:20 Carbon Dioxide 32 mmol/L (22-30) H 05/14/18 04:20 Anion Gap 13 (10-20) 05/14/18 04:20 BUN 7 mg/dl (7-17) 05/14/18 04:20 Creatinine 0.7 mg/dl (0.7-1.2) 05/14/18 04:20 Est GFR ( Amer) > 60 05/14/18 04:20 Est GFR (Non-Af Amer) > 60 05/14/18 04:20 Random Glucose 92 mg/dL (65-105) 05/14/18 04:20 Calcium 9.8 mg/dL (8.4-10.2) 05/14/18 04:20 Magnesium 2.0 MG/DL (1.6-2.3) 05/14/18 04:20 Total Bilirubin 0.3 mg/dl (0.2-1.3) 05/14/18 04:20 Direct Bilirubin 0.2 mg/ml (0.0-0.4) 05/12/18 14:55 AST 43 U/L (14-36) H D 05/14/18 04:20 ALT 84 U/L (9-52) H D 05/14/18 04:20 Alkaline Phosphatase 102 U/L (38-126) 05/14/18 04:20 Total Protein 7.7 G/DL (6.3-8.2) 05/14/18 04:20 Albumin 4.1 g/dL (3.5-5.0) 05/14/18 04:20 Globulin 3.7 gm/dL (2.2-3.9) 05/14/18 04:20 Albumin/Globulin Ratio 1.1 (1.0-2.1) 05/14/18 04:20 TSH 3rd Generation 1.47 mIU/ML (0.46-4.68) 05/11/18 05:00 Venous Blood Potassium 3.7 mmol/L (3.6-5.2) 05/10/18 18:35 Urine Color Yellow (YELLOW) 05/10/18 17:54 Urine Clarity Slighty-cloudy (Clear) 05/10/18 17:54 Urine pH 6.0 (5.0-8.0) 05/10/18 17:54 Ur Specific [place] 1.024 (1.003-1.030) 05/10/18 17:54 Urine Protein 30 mg/dL (NEGATIVE) 05/10/18 17:54 Urine Glucose (UA) Neg mg/dL (Normal) 05/10/18 17:54 Urine Ketones Trace mg/dL (NEGATIVE) 05/10/18 17:54 Urine Blood Negative (NEGATIVE) 05/10/18 17:54 Urine Nitrate Negative (NEGATIVE) 05/10/18 17:54 Urine Bilirubin Negative (NEGATIVE) 05/10/18 17:54 Urine Urobilinogen 0.2-1.0 mg/dL (0.2-1.0) 05/10/18 17:54 Ur Leukocyte Esterase Small [place]/uL (Negative) 05/10/18 17:54 Urine RBC (Auto) 2 /hpf (0-3) 05/10/18 17:54 Urine Microscopic WBC 29 /hpf (0-5) H 05/10/18 17:54 Ur Squamous Epith Cells 3 /hpf (0-5) 05/10/18 17:54 Urine Bacteria Rare (<OCC) 05/10/18 17:54 Acetaminophen 14.0 ug/ml (10.0-30.0) 05/10/18 18:23 - Hospital Course Hospital Course: 28 yo female with history of Hashimotos disease and previous kidney infections requiring hospitalization came in complaining of low back back and suprapubic pain associated with fever and urinary hesitancy. She was seen at an Urgent Care and was given Cipro and Macrobid. Her condition did not improved so she decided to seek emergency consultation in the ER. In Er she was found to be febrile with elevated WBC count and UA showed 29 WBC , small LE , negative for nitrates with few bacteria Ct abdomen showed :Suspected right lower pole renal abscess, 2.0 x 2.7 cm. Possible pyelonephritis lower pole left kidney versus small cysts. Trace fluid in cul-de-sac. ID and urology consulted and patient started on IV antibiotics, meropenem Blood and urine cultures were with no growth. At present doing well, hemodynamically stable, afebrile for > 72 hours , WBC within normal limits Cleraed by ID for discharge on Ceftin 500 mg po daily for 7 day s Will d/c patient home Follow up with [facility] in 1 week 1. Pyelonephritis blood and urine C&S: no growth Afebrile for 48 hours and WBC 9.[address] scan: Suspected right lower pole renal abscess, 2.0 x 2.7 cm. Possible pyelonephritis lower pole left kidney versus small cysts. Trace fluid in cul-de- sac. ID and urologyconsults appreciated Renal US showed phlegmon Discussed with ID and recommended continuation of IV antibiotics while in hospital and discharge today on Ceftin 500 mg PO QD for 7 days D/c ghome 2. Transaminitis LFTs trending down Possible secondary to sepsis or medication side effect 3. Imani's Disease continue Levothyroxine 100mcg PO daily TSH: 1.47 4.DVT prophylaxis lovenox Discharge Exam - Head Exam Head Exam: ATRAUMATIC, NORMAL INSPECTION, NORMOCEPHALIC - Eye Exam Eye Exam: EOMI, Normal appearance, PERRL Pupil Exam: NORMAL ACCOMODATION - ENT Exam ENT Exam: Mucous Membranes Moist, Normal Exam - Neck Exam Neck exam: Full Rom, Normal Inspection - Respiratory Exam Respiratory Exam: Clear to PA & Lateral, NORMAL BREATHING PATTERN. absent: Rales, Rhonchi - Cardiovascular Exam Cardiovascular Exam: REGULAR RHYTHM, RRR, +S1, +S2. absent: JVD - GI/Abdominal Exam GI & Abdominal Exam: Normal Bowel Sounds, Soft. absent: Distended, Guarding, Rebound, Tenderness - Rectal Exam Rectal Exam: Deferred - Extremities Exam Extremities exam: normal capillary refill, normal inspection, pedal pulses present - Back Exam Back exam: NORMAL INSPECTION - Neurological Exam Neurological exam: Alert, CN II-XII Intact, Oriented x3, Reflexes Normal - Psychiatric Exam Psychiatric exam: Normal Affect, Normal Mood - Skin Skin Exam: Dry, Intact, Normal Color, Warm Discharge Plan - Discharge Medications Prescriptions: Cefuroxime Axetil [Cefuroxime] 500 mg PO DAILY #7 tablet Levothyroxine [Synthroid] 100 mcg PO DAILY #30 tab - Follow Up Plan Condition: STABLE Disposition: HOME/ ROUTINE Patient education suggested?: Yes Instructions: Sepsis, Adult (DC), Kidney Infection (DC) Additional Instructions: follow up with pmd in 1 week. follow up with in 1 week. Referrals: [facility] [place] [Outside] Shar Singh MD [Medical Doctor] -
== END 2018-05-14 14:57 | disposition home or self-care (01) | DRG 584 ==
LOC: H.ER 17:02 → H.ERHOLD 19:27 → H.TEL 23:37
DX: A41.9 Sepsis, unspecified organism (principal); N15.1 Renal and perinephric abscess; N10 Acute pyelonephritis; E05.90 Thyrotoxicosis, unspecified without thyrotoxic crisis or storm; E06.3 Autoimmune thyroiditis; Z87.440 Personal history of urinary (tract) infections